=== PATIENT | female | born 1960 | race Caucasian/White ===

== ENCOUNTER 2020-06-19 15:43 | Inpatient (IN) | payer OTHER, MEDICARE ==
[~2020-06-19 15:43] MED LIST: ESSENTIAL DAIL1 EACH PO; FLECAINIDE ACET50 MG PO; LAMICTAL100 MG PO; PRILOSEC20 MG PO; SEROQUEL 100MG100 MG PO; VITAMIN D-40010 MCG PO
[2020-06-19 17:00] LABS: BASOPHIL 0.2 % (0-2); EOSINOPHIL 0 % (0-5); HCT 48.5 % (37.0-47.0); HGB 16.7 g/dl (12.5-16.0); MCH 29.7 pg (25.0-31.0); MCHC 34.4 g/dL (32.0-36.0); MCV 86.1 fL (78.0-100.0); MONOCYTE 8.1 % (0-12); MPV 10.6 fL (6.0-9.5); NEUTROPHIL 84.4 % (41-80); NRBC 0; PLT 351 K/uL (150-400); RBC 5.63 M/uL (4.20-5.40); RDW 13.4 % (11.5-14.0); WBC 15.9 K/uL (4.0-10.5)
[2020-06-19 17:05] LABS: INR 1.04 (0.9-1.2); PROTHROMBIN TIME 12.9 SECONDS (11.4-13.6); PTT 24.8 SECONDS (22.2-34.7)
[2020-06-19 17:20] LABS: ALBUMIN 4.8 g/dL (3.4-5.0); BUN/CREAT RATIO (CALC) 15.7 RATIO; CREATININE 3.13 mg/dL (0.51-0.95); GLOBULIN (CALCULATION) 3.5 g/dL; POTASSIUM 2.8 mmol/L (3.5-5.1); TOTAL PROTEIN 8.3 g/dL (6.4-8.2)
[2020-06-19 17:35] LABS: LACTIC ACID 2.2 mmol/L (0.4-1.9)
[2020-06-19] MEDS ORDERED: VIACTIV 650 MG1 EACH PO (20:10)
[2020-06-20 05:37] LABS: BASOPHIL 0.3 % (0-2); EOSINOPHIL 0.6 % (0-5); HCT 35.4 % (37.0-47.0); HGB 12.2 g/dl (12.5-16.0); LYMPHOCYTE 13.8 % (15-48); MCH 30.4 pg (25.0-31.0); MCHC 34.5 g/dL (32.0-36.0); MCV 88.3 fL (78.0-100.0); MONOCYTE 9.4 % (0-12); MPV 9.9 fL (6.0-9.5); NEUTROPHIL 75.6 % (41-80); NRBC 0; PLT 210 K/uL (150-400); RBC 4.01 M/uL (4.20-5.40); RDW 13.4 % (11.5-14.0)
[2020-06-20 06:09] LABS: ALBUMIN 2.9 g/dL (3.4-5.0); BILIRUBIN - TOTAL 0.7 mg/dL (0.2-1.0); BUN/CREAT RATIO (CALC) 16.4 RATIO; CREATININE 3.53 mg/dL (0.51-0.95); GLOBULIN (CALCULATION) 2.8 g/dL
[2020-06-20 06:20] LABS: TOTAL PROTEIN 5.7 g/dL (6.4-8.2)
[2020-06-20 07:18] LABS: MAGNESIUM 1.3 mg/dL (1.8-2.4); PHOSPHORUS 3.7 mg/dL (2.6-4.7)
--- NOTE | 2020-06-20 11:25 | NUR ---
06/20/2020 1025 MIDLINE LINE PLACEMENT ORDER RECEIVED FOR MIDLINE INSERTION. PROCEDURE EXPLAINED TO PATIENT. PT PREPPED AND DRAPED IN STERILE FASHION. THE PT'S LEFT UPPER ARM BASILIC VEIN WAS VISUALIZED USING THE SITE RITE 6 ULTRA SOUND. A 21 GA NEEDLE WAS USED. GOOD BLOOD RETURN WAS NOTED. THE GUIDE WIRE THREADED EASILY. THE NEEDLE WAS REMOVED AND THE MIDLINE CATHETER WAS PLACED OVER THE WIRE. THE WIRE AND SHEATH WERE REMOVED. GOOD BLOOD RETURN WAS NOTED. A CONNECTOR WAS FLUSHED AND PLACED OVER THE END OF THE CATHETER. A STAT LOCK WAS PLACED ON THE CATHETER AND A STERILE BIOPATCH WAS ALSO PLACED ON THE INSERTION SITE. A STERILE [place] DRESSING WAS PLACED OVER THE MIDLINE CATHETER. STILL HAS GOOD BLOOD RETURN. PT TOLERATED WELL. PT HAS A 20GA 10 CM POWERGLIDE MIDLINE CATHETER. GOOD FOR 29 DAYS. THIS IS NOT A CENTRAL LINE. REPORT TO [facility]
[2020-06-20 14:47] LABS: BUN/CREAT RATIO (CALC) 17.3 RATIO; CREATININE 3.41 mg/dL (0.51-0.95); MAGNESIUM 1.4 mg/dL (1.8-2.4); POTASSIUM 3.5 mmol/L (3.5-5.1)
[2020-06-21 04:57] LABS: ALBUMIN 2.7 g/dL (3.4-5.0); BILIRUBIN - TOTAL 0.5 mg/dL (0.2-1.0); BUN/CREAT RATIO (CALC) 17.8 RATIO; CREATININE 3.03 mg/dL (0.51-0.95); GLOBULIN (CALCULATION) 2.3 g/dL; POTASSIUM 3.4 mmol/L (3.5-5.1)
[2020-06-21 04:58] LABS: BASOPHIL 0.6 % (0-2); EOSINOPHIL 2.7 % (0-5); HGB 9.7 g/dl (12.5-16.0); LYMPHOCYTE 19.7 % (15-48); MCH 30.2 pg (25.0-31.0); MCHC 33.4 g/dL (32.0-36.0); MCV 90.3 fL (78.0-100.0); MONOCYTE 9.7 % (0-12); MPV 10.4 fL (6.0-9.5); NRBC 0; PLT 163 K/uL (150-400); RBC 3.21 M/uL (4.20-5.40); RDW 13.2 % (11.5-14.0); WBC 7.1 K/uL (4.0-10.5)
--- NOTE | 2020-06-21 11:00 | NUR ---
PT 2ND IV INFILTRATED WITH POTASSIUM RUN. 20 RAC DC'D AND ORDER PLACED FOR MIDLINE TO RECIEVE FLUIDS/MEDS.
[2020-06-21 12:09] LABS: CALCIUM, SERUM 10.2 mg/dL (8.7-10.3); PTH, INTACT 14 pg/mL (15-65)
--- NOTE | 2020-06-21 14:49 | NUR ---
PT WAS REPORTED TO [facility] WITHOUT O2 AND PLACED ON 2 L PREVIOUSLY. PT HAS BEEN 96%-97%. WILL ATTEMPT TO WEAN OFF O2 THIS AFTERNOON.
--- NOTE | 2020-06-21 14:51 | NUR ---
06/21/20 Ms. Adam lives at home with her spouse. She is independent in the home and community. She does not use any DME. Patient is currently using 02. Please monitor for 02 needs at discharge.
--- NOTE | 2020-06-22 02:02 | NUR ---
0130 PT SOA AMBULATING TO BATHROOM. 02 SAT 89% ON RA. PT PLACED ON 2L NC WITH SAT INCREASING TO 94%.
[2020-06-22 06:06] LABS: BASOPHIL 0.5 % (0-2); EOSINOPHIL 4.7 % (0-5); HCT 30.1 % (37.0-47.0); LYMPHOCYTE 18.7 % (15-48); MCH 30.1 pg (25.0-31.0); MCHC 33.2 g/dL (32.0-36.0); MCV 90.7 fL (78.0-100.0); MONOCYTE 7.4 % (0-12); NEUTROPHIL 68.3 % (41-80); NRBC 0; PLT 184 K/uL (150-400); RBC 3.32 M/uL (4.20-5.40); RDW 13.2 % (11.5-14.0); WBC 7.7 K/uL (4.0-10.5)
[2020-06-22 06:18] LABS: BUN/CREAT RATIO (CALC) 17.9 RATIO; CREATININE 2.35 mg/dL (0.51-0.95); MAGNESIUM 1.5 mg/dL (1.8-2.4); POTASSIUM 4.1 mmol/L (3.5-5.1)
[2020-06-22 09:38] LABS: BILIRUBIN NEGATIVE (NEGATIVE); BLOOD NEGATIVE Ery/uL (NEGATIVE); CLARITY CLEAR (CLEAR); COLOR YELLOW (YELLOW); GLUCOSE (U) NORMAL (NORMAL); LEUKOCYTES TRACE Leu/uL (NEGATIVE); NITRITE NEGATIVE (NEGATIVE); PROTEIN NEGATIVE (NEGATIVE); UROBILINOGEN 0.2 mg/dL (0.2-1.0); pH 5.5 (5.0-9.0)
[2020-06-22 09:44] LABS: BACTERIA 1+
[2020-06-23 05:52] LABS: BASOPHIL 0.5 % (0-2); EOSINOPHIL 3.8 % (0-5); HGB 9.7 g/dl (12.5-16.0); LYMPHOCYTE 15.2 % (15-48); MCH 29.5 pg (25.0-31.0); MCHC 33.4 g/dL (32.0-36.0); MCV 88.1 fL (78.0-100.0); MONOCYTE 9.4 % (0-12); MPV 10.2 fL (6.0-9.5); NEUTROPHIL 70.7 % (41-80); NRBC 0; PLT 191 K/uL (150-400); RBC 3.29 M/uL (4.20-5.40); RDW 13.4 % (11.5-14.0); WBC 8.2 K/uL (4.0-10.5)
[2020-06-23 06:09] LABS: BUN/CREAT RATIO (CALC) 14.9 RATIO; CREATININE 1.81 mg/dL (0.51-0.95); MAGNESIUM 1.6 mg/dL (1.8-2.4); POTASSIUM 3.2 mmol/L (3.5-5.1)
[2020-06-24 06:59] LABS: BASOPHIL 0.7 % (0-2); EOSINOPHIL 5.5 % (0-5); HCT 31.1 % (37.0-47.0); HGB 10.5 g/dl (12.5-16.0); LYMPHOCYTE 18.5 % (15-48); MCH 29.9 pg (25.0-31.0); MCHC 33.8 g/dL (32.0-36.0); MCV 88.6 fL (78.0-100.0); MONOCYTE 8.6 % (0-12); MPV 10.4 fL (6.0-9.5); NEUTROPHIL 66.4 % (41-80); NRBC 0; PLT 225 K/uL (150-400); RBC 3.51 M/uL (4.20-5.40); RDW 13.8 % (11.5-14.0); WBC 7.6 K/uL (4.0-10.5)
[2020-06-24 07:22] LABS: ALBUMIN 2.8 g/dL (3.4-5.0); BILIRUBIN - TOTAL 0.7 mg/dL (0.2-1.0); BUN/CREAT RATIO (CALC) 9.4 RATIO; CREATININE 1.71 mg/dL (0.51-0.95); GLOBULIN (CALCULATION) 3.4 g/dL; POTASSIUM 3.1 mmol/L (3.5-5.1); TOTAL PROTEIN 6.2 g/dL (6.4-8.2)
[2020-06-24] MEDS ORDERED: ASPIRIN EC81 MG PO (10:21)
[2020-06-24] MEDS ORDERED: SPIRIVA RESPIMAT4 G1 INH (10:21)
[2020-06-24] MEDS ORDERED: PROVENTIL HFA6.7 GM INH (10:21)
[2020-06-24] MEDS ORDERED: AZITHROMYCIN 2250 MG PO (10:22)
[2020-06-24] MEDS ORDERED: LASIX20 MG PO (10:26)
--- NOTE | 2020-06-24 12:29 | NUR ---
PT. WILL NEED HOME O2 AT 2LITERS NC. SHE CHOSE [facility] TO DELIVER A TRAVEL TANK TO [facility]OSPITAL AND ADVISED SPOUSE TO CALL [facility] WHEN THEY GET HOME FOR DELIVERY OF CONCENTRATOR.
== END 2020-06-24 15:00 | disposition home or self-care (01) | DRG 438 ==
LOC: FER 15:43 → FTCU 18:14 → FMS 06-21 13:10
PROVIDERS: Emergency Medicine; Nurse Practitioner; ADMIT Internal Medicine
PROC: 05HC33Z Insertion of Infusion Device into Left Basilic Vein, Percutaneous Approach (ICD-10-PCS; principal; 2020-06-20)
DX: K85.90 Acute pancreatitis without necrosis or infection, unspecified (principal); I21.4 Non-ST elevation (NSTEMI) myocardial infarction; J96.91 Respiratory failure, unspecified with hypoxia; J44.1 Chronic obstructive pulmonary disease with (acute) exacerbation; N17.9 Acute kidney failure, unspecified; F31.9 Bipolar disorder, unspecified; Z20.822 Contact with and (suspected) exposure to COVID-19; E53.8 Deficiency of other specified B group vitamins; F43.10 Post-traumatic stress disorder, unspecified; E83.52 Hypercalcemia; E86.0 Dehydration; I10 Essential (primary) hypertension; E78.5 Hyperlipidemia, unspecified; E87.70 Fluid overload, unspecified; E87.6 Hypokalemia; Z79.899 Other long term (current) drug therapy; Z87.891 Personal history of nicotine dependence; Z98.890 Other specified postprocedural states
CPT/HCPCS: 36415; 36600; 71045; 76700; 80048; 80053; 80061; 81001; 82310; 82803; 83605; 83690; 83735; 83880; 83970; 84100; 84484; 85025; 85610; 85730; 87040; 87088; 93005; 94010; 94640; C1751; C9113; J1940; J2405; J3475; J3480; J7030; U0002

== ENCOUNTER 2020-09-13 08:30 | Inpatient (IN) | payer OTHER ==
[~2020-09-13] VITALS: Ht 162.6 cm; Wt 65.0 kg
[~2020-09-13 08:30] MED LIST changes: +ASPIRIN EC81 MG PO; +AZITHROMYCIN 2250 MG PO; +LASIX20 MG PO; +PROVENTIL HFA6.7 GM INH; +SPIRIVA RESPIMAT4 G1 INH; +VIACTIV 650 MG1 EACH PO
[2020-09-13] MEDS ORDERED: PRILOSEC20 MG PO (09:41)
[2020-09-13 18:13] LABS: BASOPHIL 0.3 % (0-2); EOSINOPHIL 0.1 % (0-5); HCT 39.9 % (37.0-47.0); HGB 13.9 g/dl (12.5-16.0); LYMPHOCYTE 4.2 % (15-48); MCHC 34.8 g/dL (32.0-36.0); MCV 86.2 fL (78.0-100.0); MONOCYTE 3.8 % (0-12); MPV 9.8 fL (6.0-9.5); NRBC 0; PLT 224 K/uL (150-400); RBC 4.63 M/uL (4.20-5.40); RDW 13.3 % (11.5-14.0); WBC 9.8 K/uL (4.0-10.5)
[2020-09-13 18:27] LABS: NEUTROPHIL 91.4 % (41-80)
[2020-09-13 18:34] LABS: ALBUMIN 3.8 g/dL (3.4-5.0); BILIRUBIN - TOTAL 0.9 mg/dL (0.2-1.0); BUN/CREAT RATIO (CALC) 18.1 RATIO; CREATININE 1.05 mg/dL (0.51-0.95); GLOBULIN (CALCULATION) 3.6 g/dL; POTASSIUM 3.5 mmol/L (3.5-5.1); TOTAL PROTEIN 7.4 g/dL (6.4-8.2)
[2020-09-13 18:40] LABS: PRO-BNP 178 pg/mL (<125)
--- NOTE | 2020-09-13 18:42 | NUR ---
PLACED PATIENT ON NASAL CANNULA AT 2 LITERS AT 1700 PT HAS REMAINED BETWEEN 92-93% ON THE [address] SPO[address] ASHFORD STATES THAT IT IS OKAY TO LEAVE PATIENT ON 2 LITERS AND VENTURI MASK DOES NOT HAVE TO BE REAPPLIED.
[2020-09-14 08:37] LABS: HCT 36.3 % (37.0-47.0); HGB 12.2 g/dl (12.5-16.0); MCH 29.5 pg (25.0-31.0); MCHC 33.6 g/dL (32.0-36.0); MCV 87.9 fL (78.0-100.0); MPV 9.6 fL (6.0-9.5); RBC 4.13 M/uL (4.20-5.40); RDW 13.4 % (11.5-14.0); WBC 11.8 K/uL (4.0-10.5)
[2020-09-14 08:52] LABS: BUN/CREAT RATIO (CALC) 24.8 RATIO; CREATININE 1.13 mg/dL (0.51-0.95); POTASSIUM 3.3 mmol/L (3.5-5.1)
[2020-09-15] MEDS ORDERED: AZITHROMYCIN250 MG PO (13:12)
[2020-09-15] MEDS ORDERED: VENTOLIN HFA IN18 GM INH (13:12)
[2020-09-15] MEDS ORDERED: CEFDINIR300 MG PO (13:12)
--- NOTE | 2020-09-15 14:16 | NUR ---
1350-DISCUSSED DISCHARGE INSTRUCTIONS WITH PATIENT AND . IV X2 REMOVED, NO BLOOD THROUGH [facility]. PT IN STABLE CONDITION. 94% ON ROOM AIR AFTER AMBULATINO TO RESTROOM. D/C HOME WITHOUT O2.
== END 2020-09-15 13:50 | disposition home or self-care (01) | DRG 193 ==
LOC: FAS 08:30 → FTCU 14:12 → FAS 14:13 → FTCU 14:13 → FMS 09-14 11:40
PROVIDERS: Student in an Organized Health Care Education/Training Program; ADMIT Internal Medicine
PROC: 0DB38ZX Excision of Lower Esophagus, Via Natural or Artificial Opening Endoscopic, Diagnostic (ICD-10-PCS; principal; 2020-09-13 09:30)
PROC: 0DB88ZX Excision of Small Intestine, Via Natural or Artificial Opening Endoscopic, Diagnostic (ICD-10-PCS; 2020-09-13 09:30)
PROC: 0DB78ZX Excision of Stomach, Pylorus, Via Natural or Artificial Opening Endoscopic, Diagnostic (ICD-10-PCS; 2020-09-13 09:30)
DX: J18.9 Pneumonia, unspecified organism (principal); J96.01 Acute respiratory failure with hypoxia; J81.0 Acute pulmonary edema; J98.11 Atelectasis; J81.1 Chronic pulmonary edema; K92.1 Melena; Z20.822 Contact with and (suspected) exposure to COVID-19; J44.9 Chronic obstructive pulmonary disease, unspecified; F31.9 Bipolar disorder, unspecified; K21.9 Gastro-esophageal reflux disease without esophagitis; E53.8 Deficiency of other specified B group vitamins; F43.10 Post-traumatic stress disorder, unspecified; F41.9 Anxiety disorder, unspecified; K31.7 Polyp of stomach and duodenum; Z87.891 Personal history of nicotine dependence; K20.90 Esophagitis, unspecified without bleeding; R00.2 Palpitations; R00.0 Tachycardia, unspecified
CPT/HCPCS: 36415; 36600; 71045; 71275; 80048; 80053; 82803; 83880; 84484; 85025; 93005; 94640; J0696; J1940; J2060; J2704; J7120; Q9967; U0002